=== PATIENT | female | born 1985 | race Caucasian/White ===

== ENCOUNTER 2017-10-03 13:25 | Inpatient (IN) | payer OTHER ==
[2017-10-03 14:07] VITALS: BMI 19.3
--- NOTE | 2017-10-03 14:28 | HP ---
Admission ROS [facility] Chief Complaint: i want to go to rehab Allergies/Adverse Reactions: Allergies Allergy/AdvReac Type Severity Reaction Status Date / Time No Known Allergies Allergy Verified 10/03/17 14:27 History of Present Illness: 32 years old female with long history of cocaine alcohol nicotine dependence has anxiety and depression on methadone program 160 mg is admitted to rehab Exam Limitations: No Limitations - Ebola screening Have you traveled outside of the country in the last 21 days: No (N) Have you had contact with anyone from an Ebola affected area: No Have you been sick,other than usual withdrawal symptoms: No Do you have a fever: No - Review of Systems Constitutional: Loss of Appetite, Unintentional Wgt. Loss, Unexplained wgt Loss EENT: reports: No Symptoms Reported Respiratory: reports: No Symptoms reported Cardiac: reports: No Symptoms Reported GI: reports: No Symptoms Reported : reports: No Symptoms Reported Musculoskeletal: reports: Back Pain, Joint Pain, Muscle Pain, Neck Pain Integumentary: reports: No Symptoms Reported Neuro: reports: No Symptoms reported Endocrine: reports: No Symptoms Reported Hematology: reports: No Symptoms Reported Psychiatric: reports: Judgement Intact, Orientated x3, Anxious, Depressed Other Systems: Reviewed and Negative Patient History - Patient Medical History Hx Anemia: No Hx Asthma: No Hx Chronic Obstructive Pulmonary Disease (COPD): No Hx Cancer: No Hx Cardiac Disorders: No Hx Congestive Heart Failure: No Hx Hypertension: No Hx Hypercholesterolemia: No Hx Pacemaker: No HX Cerebrovascular Accident: No Hx Seizures: No Hx Dementia: No Hx Diabetes: No Hx Gastrointestinal Disorders: No Hx Liver Disease: No Hx Genitourinary Disorders: No Hx Sexually Transmitted Disorders: No Hx Renal Disease (ESRD): No Hx Thyroid Disease: No Hx Human Immunodeficiency Virus (HIV): No Hx Hepatitis C: No Hx Depression: Yes Hx Suicide Attempt: No Hx Bipolar Disorder: No Hx Schizophrenia: No - Patient Surgical History Past Surgical History: No - PPD History Previous Implant?: Yes Documented Results: Negative w/o proof Implanted On Prior [facility] Admission?: No PPD to be Administered?: Yes - Reproductive History Patient is a Female of Child Bearing Age (11 -55 yrs old): Yes Last Menstrual Period: 09/08/17 Patient : No - Smoking Cessation Smoking history: Current every day smoker Have you smoked in the past 12 months: Yes Aproximately how many cigarettes per day: 10 Cigars Per Day: 0 Hx Chewing Tobacco Use: No Initiated information on smoking cessation: Yes 'Breaking Loose' booklet given: 10/03/17 - Substance & Tx. History Hx Alcohol Use: Yes Hx Substance Use: Yes Substance Use Type: Alcohol, Cocaine, Heroin Hx Substance Use Treatment: No - Substances Abused Oxycontin Route: Oral Frequency: Daily Amount used: 150 mg Age of first use: 28 Date of Last Use: 10/03/14 Heroin Route: Inhalation Frequency: Daily Amount used: 5 bags Age of first use: 28 Date of Last Use: 10/03/14 Cocaine Route: Smoking Frequency: 3-6 times per week Amount used: 60$ Age of first use: 29 Date of Last Use: 10/02/17 Alcohol Route: Oral Frequency: 3-6 times per week Amount used: [id number] Age of first use: 22 Date of Last Use: 09/29/17 Family Disease History - Family Disease History Family Disease History: Heart Disease: Grandparent, Father, [place]: Grandparent Admission Physical Exam [facility] - Vital Signs Vital Signs: Vital Signs - 24 hr 10/03/17 14:04 Temperature 96 F L Pulse Rate 75 Respiratory 20 Rate Blood Pressure 100/78 - Physical General Appearance: Yes: No Apparent Distress, Appropriately Dressed, Thin HEENTM: Yes: Hearing grossly Normal, Normal ENT Inspection, Normocephalic, Normal Voice Respiratory: Yes: Chest Non-Tender, Lungs Clear, Normal Breath Sounds, No Respiratory Distress, No Accessory Muscle Use Neck: Yes: Supple, Trachea in good position Breast: Yes: Breasts Symetrical Cardiology: Yes: Regular Rhythm, Regular Rate, S1, S2 Abdominal: Yes: Normal Bowel Sounds, Non Tender, Soft Genitourinary: Yes: Within Normal Limits Back: Yes: Normal Inspection Musculoskeletal: Yes: full range of Motion, Gait Steady Extremities: Yes: Normal Inspection, Normal Range of Motion, Non-Tender Neurological: Yes: Fully Oriented, Alert, Motor Strength 5/5, Normal Response, Depressed Affect Integumentary: Yes: Warm Lymphatic: Yes: Within Normal Limits - Diagnostic (1) Methadone maintenance therapy patient Current Visit: Yes Status: Chronic Comment: 160 mg po daily verificaiton pending (2) Cocaine dependence, uncomplicated Current Visit: Yes Status: Acute (3) Nicotine dependence Current Visit: Yes Status: Acute Qualifiers: Nicotine product type: cigarettes Substance use status: in withdrawal Qualified Code(s): F17.213 - Nicotine dependence, cigarettes, with withdrawal (4) Weight loss Current Visit: Yes Status: Acute (5) Anxiety and depression Current Visit: Yes Status: Suspected Cleared for Admission [facility] - Detox or Rehab [facility] Level of Care: Observation Bed Detox Regimen/Protocol: Not Applicable [facility] Breath Alcohol Content Breath Alcohol Content: 0 Urine Pregancy Test - Result Urine Test Results: Negative- NO Line Present Urine Drug Screen - Results Drug Screen Negative: No Urine Drug Screen Results: NELLY-Cocaine, MTD-Methadone Inpatient Rehab Admission - Initial Determination Are CD services needed?: Yes Free of communicable disease: Yes Not in need of hospitalization: Yes - Rehab Admission Criteria Previous failed treatment: Yes Poor recovery environment: Yes Comorbidities: Yes Lacks judgement: No Patient is meeting Inpatient Rehab admission criteria:: Yes
[2017-10-03] MEDS ORDERED: LOPERAMIDE HCL 2 MG CAPSULE PO PRN (14:39)
[2017-10-03] MEDS ORDERED: MAGNESIUM CITRATE 300 ML BOTTLE PO PRN (14:39)
[2017-10-03] MEDS ORDERED: MAG HYDROX/AL HYDROX/SIMETH 30 ML UNIT-DOSE CUP PO PRN (14:39)
[2017-10-03] MEDS ORDERED: P-EPHED 60MG/TRIPROLIDI 2.5MG TABLET PO PRN (14:39)
[2017-10-03] MEDS ORDERED: MENTHOL/PHENOL 1 EACH UD MM PRN (14:39)
[2017-10-03] MEDS ORDERED: IBUPROFEN 400 MG TABLET (FP) PO PRN (14:39)
[2017-10-03] MEDS ORDERED: NICOTINE POLACRILEX 2 MG GUM BUC PRN (14:39)
[2017-10-03] MEDS ORDERED: guaiFENesin/D-METHORPHAN HB 10 ML UNIT-DOSE CUPS PO PRN (14:39)
[2017-10-03] MEDS ORDERED: METHOCARBAMOL 500 MG TABLET PO PRN (15:53)
[2017-10-03 17:18] LABS: HEMATOCRIT 36.1 % (32.4-45.2); HEMOGLOBIN 12.2 GM/dL (10.7-15.3); MCH 29.6 pg (25.7-33.7); MCHC 33.9 g/dl (32.0-36.0); MEAN CELL VOLUME 87.1 fl (80-96); MEAN PLT VOLUME 7.4 fl (7.5-11.1); PLATELET COUNT 366 K/MM3 (134-434); RBC 4.14 M/mm3 (3.60-5.2); RDW 13.5 % (11.6-15.6); WHITE BLOOD COUNT 5.4 K/mm3 (4.0-10.0)
[2017-10-03 17:43] LABS: ALBUMIN 3.8 g/dl (3.4-5.0); ALK PHOS 59 U/L (45-117); ANION GAP 6 (8-16); BILIRUBIN,TOTAL 0.2 mg/dL (0.2-1.0); BLOOD UREA NITROGEN 12 mg/dL (7-18); CALCIUM 8.5 mg/dL (8.5-10.1); CHLORIDE 106 mmol/L (98-107); CO2 30 mmol/L (21-32); CREATININE 0.6 mg/dL (0.55-1.02); GLUCOSE,RANDOM 83 mg/dL (74-106); POTASSIUM 3.8 mmol/L (3.5-5.1); SGOT/AST 11 U/L (15-37); SGPT/ALT 14 U/L (12-78); SODIUM 142 mmol/L (136-145); TOT PROT 6.7 g/dl (6.4-8.2)
[2017-10-03] MEDS ORDERED: TUBERCULIN PPD 5 TU/0.1ML VIAL ID ONE ×2 (18:58→23:15)
[2017-10-03] MEDS: THIAMINE HCL 100 MG TABLET (FP) PO SCH (23:55)
--- NOTE | 2017-10-04 10:20 | HP ---
Psychiatrist Admission - Data Date of interview: 10/04/17 Admission source: [facility] Identifying data: This is the first admission to [facility] for this 32 years old single mother of 5 (3 kids with her parents and 2 children in Foster care) .Patient is homeless,supported by [place]. Medical History: Lost weight. Psychiatric History: denies psychiatric history but reports sleeping difficulties on and off.Patient states that Benadryl is not helping her cope with sleeping difficulties.She is willing to try Trazodone 50 mg po hs. Physical/Sexual Abuse/Trauma History: denies Vital Signs: Vital Signs - 24 hr 10/03/17 10/03/17 10/04/17 14:04 18:30 00:30 Temperature 96 F L 98.4 F Pulse Rate 75 80 Respiratory 20 18 18 Rate Blood Pressure 100/78 109/75 10/04/17 10/04/17 03:30 07:43 Temperature 97.5 F L Pulse Rate 97 H Respiratory 18 18 Rate Blood Pressure 103/70 Allergies/Adverse Reactions: Allergies Allergy/AdvReac Type Severity Reaction Status Date / Time No Known Allergies Allergy Verified 10/03/17 15:10 Date of last physical exam: 10/03/17 Concur with the findings of this exam: Yes - Substance Abuse/Tx History Hx Alcohol Use: Yes (reort drinking since 22 yo (vodka 2-3 pints daily)) Hx Substance Use: Yes (crack since 29yo,pain killers then heroin since 29 yo, Xanax 29 yo) Substance Use Type: Alcohol, Cocaine, Opiates, Tranquilizers Hx Substance Use Treatment: Yes (completed inpatient rehab 3 years old ,longest abstinence 1 year) Mental Status Exam - Mental Status Exam Alert and Oriented to: Time, Place, Person Cognitive Function: Grossly Intact Patient Appearance: Unkempt Mood: Sad, Anxious Affect: Labile Patient Behavior: Cooperative Speech Pattern: Clear Voice Loudness: Normal Thought Process: Goal Oriented Thought Disorder: Not Present Hallucinations: Denies Suicidal Ideation: Denies Homicidal Ideation: Denies Insight/Judgement: Fair Sleep: Difficulty falling asleep Appetite: Good Muscle strength/Tone: Normal Gait/Station: Normal Psychiatric Findings - Problem List ([place] 1, 2,3) (1) Cocaine dependence, uncomplicated Current Visit: Yes Status: Chronic (2) Nicotine dependence Current Visit: Yes Status: Chronic Qualifiers: Nicotine product type: cigarettes Substance use status: in withdrawal Qualified Code(s): F17.213 - Nicotine dependence, cigarettes, with withdrawal (3) Methadone maintenance therapy patient Current Visit: Yes Status: Chronic Comment: 160 mg po daily verificaiton pending (4) Opioid dependence Current Visit: Yes Status: Chronic (5) Substance-induced sleep disorder Current Visit: Yes Status: Chronic - Initial Treatment Plan Initial Treatment Plan: Trazodone 50 mg po hs.Will monitor progress.
[2017-10-04] MEDS: PRENATAL VITAMINS W/ FOLIC ACID TABLET (FP) PO SCH (10:37)
[2017-10-04] MEDS: NICOTINE 14 MG/24 HOURS TOPICAL PATCH TD SCH (10:37)
[2017-10-04] MEDS: METHADONE HCL 40 MG DISPERSABLE TABLET PO SCH (10:37)
--- NOTE | 2017-10-04 14:19 | EKG ---
Test Reason : Blood Pressure : / mmHG Vent. Rate : 080 BPM Atrial Rate : 080 BPM P-R Int : 118 ms QRS Dur : 088 ms QT Int : 318 ms P-R-T Axes : 080 051 064 degrees QTc Int : 366 ms NORMAL SINUS RHYTHM NONSPECIFIC T WAVE ABNORMALITY ABNORMAL ECG NO PREVIOUS ECGS AVAILABLE Confirmed by OMID JAIMES MD ([id number]) on 10/04/2017 2:19:03 PM Referred By: Confirmed By:OMID JAIMES MD
[2017-10-04 15:22] LABS: URINE APPEARANCE TURBID; URINE BILIRUBIN NEGATIVE (NEGATIVE); URINE BLOOD NEGATIVE (NEGATIVE); URINE COLOR AMBER; URINE GLUCOSE (UA) NEGATIVE (NEGATIVE); URINE KETONE NEGATIVE (NEGATIVE); URINE NITRITE POSITIVE (NEGATIVE); URINE UROBILINOGEN 4.0 E.U/dl mg/dL (0.2-1.0)
[2017-10-04 15:40] LABS: URINE LEUK ESTERASE 2+ (NEGATIVE); URINE PROTEIN 1+ (NEGATIVE)
[2017-10-04 15:53] LABS: CALCIUM OXALATE CRYSTALS FEW /hpf (NONE SEEN); EPI CELLS MANY /HPF (FEW); URINE BACTERIA MANY /hpf (NONE SEEN)
[2017-10-04] MEDS: THIAMINE HCL 100 MG TABLET (FP) PO SCH (21:40)
[2017-10-05] MEDS: METHADONE HCL 40 MG DISPERSABLE TABLET PO SCH (06:33)
[2017-10-05] MEDS: NICOTINE 14 MG/24 HOURS TOPICAL PATCH TD SCH (09:47)
[2017-10-05] MEDS: PRENATAL VITAMINS W/ FOLIC ACID TABLET (FP) PO SCH (09:49)
[2017-10-05] MEDS: THIAMINE HCL 100 MG TABLET (FP) PO SCH (21:32)
[2017-10-06] MEDS: METHADONE HCL 40 MG DISPERSABLE TABLET PO SCH (06:32)
[2017-10-06] MEDS: NICOTINE 14 MG/24 HOURS TOPICAL PATCH TD SCH (09:44)
[2017-10-06] MEDS: PRENATAL VITAMINS W/ FOLIC ACID TABLET (FP) PO SCH (09:44)
[2017-10-06] MEDS: THIAMINE HCL 100 MG TABLET (FP) PO SCH (21:27)
[2017-10-07] MEDS: METHADONE HCL 40 MG DISPERSABLE TABLET PO SCH (06:45)
[2017-10-07] MEDS: PRENATAL VITAMINS W/ FOLIC ACID TABLET (FP) PO SCH (10:27)
[2017-10-07] MEDS: NICOTINE 14 MG/24 HOURS TOPICAL PATCH TD SCH (10:27)
[2017-10-07] MEDS: THIAMINE HCL 100 MG TABLET (FP) PO SCH (21:40)
[2017-10-08] MEDS: diphenhydrAMINE HCL 50 MG CAPSULE PO PRN ×2 (00:30→21:23)
[2017-10-08] MEDS: METHADONE HCL 40 MG DISPERSABLE TABLET PO SCH (06:25)
[2017-10-08] MEDS: NICOTINE 14 MG/24 HOURS TOPICAL PATCH TD SCH (10:08)
[2017-10-08] MEDS: PRENATAL VITAMINS W/ FOLIC ACID TABLET (FP) PO SCH (10:08)
[2017-10-08] MEDS: THIAMINE HCL 100 MG TABLET (FP) PO SCH (21:23)
[2017-10-09] MEDS: METHADONE HCL 40 MG DISPERSABLE TABLET PO SCH (06:22)
[2017-10-09] MEDS: PRENATAL VITAMINS W/ FOLIC ACID TABLET (FP) PO SCH (10:25)
[2017-10-09] MEDS: NICOTINE 14 MG/24 HOURS TOPICAL PATCH TD SCH (10:25)
--- NOTE | 2017-10-09 11:14 | PN ---
Psychiatric Progress Note Vital Signs: Vital Signs Period Temp Pulse Resp BP Sys/Barber Pulse Ox Last 24 Hr 97.1 F 98 16-18 110/74 Date of Session: 10/09/17 Chief Complaint:: Gerardo very anxious and restless at time." HPI: Patient addressed Opioid dependence,Cociane dependence comorbid with Substance induced mood dsiorder. Current Medications: Active Medications Generic Name Dose Route Start Last Admin Trade Name Freq PRN Reason Stop Dose Admin Acetaminophen 650 mg 10/03/17 14:39 Tylenol - PO Q4H PRN FEVER Al Hydroxide/Mg Hydroxide 30 ml 10/03/17 14:39 Mylanta Oral Suspension - PO Q6H PRN DYSPEPSIA Diphenhydramine HCl 50 mg 10/07/17 17:56 10/08/17 21:23 Benadryl - PO 50 mg HS PRN Administration INSOMNIA Eucalyptus/Menthol/Phenol/Sorbitol 1 each 10/03/17 14:39 Cepastat Lozenge - MM Q4H PRN SORE THROAT Gabapentin 100 mg 10/09/17 14:00 Neurontin - PO TID RAMONA Guaifenesin 10 ml 10/03/17 14:39 Robitussin Dm - PO Q6H PRN COUGH Ibuprofen 400 mg 10/03/17 14:39 Motrin - PO Q6H PRN Pain level 4-6 Loperamide HCl 4 mg 10/03/17 14:39 Imodium - PO Q6H PRN DIARRHEA Magnesium Citrate 300 ml 10/03/17 14:39 Citroma - PO Q48H PRN CONSTIPATION Magnesium Hydroxide 30 ml 10/03/17 14:39 Milk Of Magnesia - PO DAILY PRN CONSTIPATION Methadone HCl 160 mg 10/04/17 09:45 10/09/17 06:22 Dolophine - PO 10/11/17 09:44 160 mg DAILY@0600 RAMONA Administration Methocarbamol 500 mg 10/03/17 15:53 Robaxin - PO QID PRN BACK PAIN Nicotine 14 mg 10/04/17 10:00 10/09/17 10:25 Nicoderm Patch - TD 14 mg DAILY RAMONA Administration Nicotine Polacrilex 2 mg 10/03/17 14:39 Nicorette Gum - BUC Q2H PRN NICOTINE REPLACEMENT RX Multivit/Folic Acid/Iron 1 tab 10/04/17 10:00 10/09/17 10:25 Vitamins ([facility]) - PO 1 tab DAILY RAMONA Administration Pseudoephedrine/Triprolidine 1 combo 10/03/17 14:39 Actifed - PO TID PRN NASAL CONGESTION Thiamine HCl 100 mg 10/03/17 22:00 10/08/17 21:23 Vitamin B1 - PO 100 mg HS RAMONA Administration Current Side Effect: No Lab tests ordered: No Lab tests reviewed: Yes Provider note:: Chart was revuewed,met with the patient to address her ongoing anxiety,restlesseness,sleeping difficulties.Properties of Neurontin has been discussed with the patient including side effects,benefits and dose adjustment.Patient is willing to start Neurontin 100 mg po tid. Supportive therapy provided focusing on relaxation techniques,behavior modification.Emotional support provided. Total face to face time:: 30 Mental Status Exam - Mental Status Exam Alert and Oriented to: Time, Place, Person Cognitive Function: Grossly Intact Patient Appearance: Well Groomed Mood: Nervous, Anxious, Irritable Affect: Mood Congruent, Labile Patient Behavior: Restless, Cooperative Speech Pattern: Clear Voice Loudness: Normal Thought Process: Goal Oriented Thought Disorder: Not Present Hallucinations: Denies Suicidal Ideation: Denies Homicidal Ideation: Denies Insight/Judgement: Fair Sleep: Difficulty falling asleep Appetite: Good Muscle strength/Tone: Normal Gait/Station: Normal Psychiatric Treatment Plan - Problem List (1) Cocaine dependence, uncomplicated Current Visit: Yes (2) Nicotine dependence Current Visit: Yes Qualifiers: Nicotine product type: cigarettes Substance use status: in withdrawal Qualified Code(s): F17.213 - Nicotine dependence, cigarettes, with withdrawal (3) Methadone maintenance therapy patient Current Visit: Yes Comment: 160 mg po daily verificaiton pending (4) Opioid dependence Current Visit: Yes (5) Substance-induced sleep disorder Current Visit: Yes
[2017-10-09] MEDS: GABAPENTIN 100 MG CAPSULE (FP) PO SCH ×2 (13:13→21:37)
--- NOTE | 2017-10-09 13:19 | PN ---
S Progress Note (SOAP) Subjective: "vaginal discomfort, vaginal itch and white discharge " Objective: 10/09/17 13:16 Vital Signs Temperature 97.1 F L 10/09/17 07:23 Pulse Rate 98 H 10/09/17 07:23 Respiratory Rate 18 10/09/17 07:23 Blood Pressure 110/74 10/09/17 07:23 O2 Sat by Pulse Oximetry (%) Laboratory Last Values WBC 5.4 K/mm3 (4.0-10.0) 10/03/17 15:40 RBC 4.14 M/mm3 (3.60-5.2) 10/03/17 15:40 Hgb 12.2 GM/dL (10.7-15.3) 10/03/17 15:40 Hct 36.1 % (32.4-45.2) 10/03/17 15:40 MCV 87.1 fl (80-96) 10/03/17 15:40 MCH 29.6 pg (25.7-33.7) 10/03/17 15:40 MCHC 33.9 g/dl (32.0-36.0) 10/03/17 15:40 RDW 13.5 % (11.6-15.6) 10/03/17 15:40 Plt Count 366 K/MM3 (134-434) 10/03/17 15:40 MPV 7.4 fl (7.5-11.1) L 10/03/17 15:40 Sodium 142 mmol/L (136-145) 10/03/17 15:40 Potassium 3.8 mmol/L (3.5-5.1) 10/03/17 15:40 Chloride 106 mmol/L (98-107) 10/03/17 15:40 Carbon Dioxide 30 mmol/L (21-32) 10/03/17 15:40 Anion Gap 6 (8-16) L 10/03/17 15:40 BUN 12 mg/dL (7-18) 10/03/17 15:40 Creatinine 0.6 mg/dL (0.55-1.02) 10/03/17 15:40 Creat Clearance w eGFR > 60 (>60) 10/03/17 15:40 Random Glucose 83 mg/dL (74-106) 10/03/17 15:40 Calcium 8.5 mg/dL (8.5-10.1) 10/03/17 15:40 Total Bilirubin 0.2 mg/dL (0.2-1.0) 10/03/17 15:40 AST 11 U/L (15-37) L 10/03/17 15:40 ALT 14 U/L (12-78) 10/03/17 15:40 Alkaline Phosphatase 59 U/L (45-117) 10/03/17 15:40 Total Protein 6.7 g/dl (6.4-8.2) 10/03/17 15:40 Albumin 3.8 g/dl (3.4-5.0) 10/03/17 15:40 Urine Color Jayne 10/03/17 10:00 Urine Appearance Turbid 10/03/17 10:00 Urine pH 5.0 (5.0-8.0) 10/03/17 10:00 Ur Specific [place] 1.026 (1.001-1.035) 10/03/17 10:00 Urine Protein 1+ (NEGATIVE) H 10/03/17 10:00 Urine Glucose (UA) Negative (NEGATIVE) 10/03/17 10:00 Urine Ketones Negative (NEGATIVE) 10/03/17 10:00 Urine Blood Negative (NEGATIVE) 10/03/17 10:00 Urine Nitrite Positive (NEGATIVE) 10/03/17 10:00 Urine Bilirubin Negative (NEGATIVE) 10/03/17 10:00 Urine Urobilinogen 4.0 e.u/dl mg/dL (0.2-1.0) H 10/03/17 10:00 Ur Leukocyte Esterase 2+ (NEGATIVE) H 10/03/17 10:00 Urine WBC (Auto) 22 /hpf (3-5) 10/03/17 10:00 Urine RBC (Auto) 10 /hpf (0-3) 10/03/17 10:00 Ur Epithelial Cells Many /HPF (FEW) 10/03/17 10:00 Calcium Oxalate Crystal Few /hpf (NONE SEEN) 10/03/17 10:00 Urine Bacteria Many /hpf (NONE SEEN) 10/03/17 10:00 RPR Titer Nonreactive (NONREACTIVE) 10/03/17 15:40 HIV 1&2 Antibody Screen Negative 10/04/17 05:50 HIV P24 Antigen Negative 10/04/17 05:50 Patient AOx3, self directing,well groom, no apparent distress. Lungs clear in all ferreira Normal hear rate , rythmn skin intact : deferred Assessment: 10/09/17 13:19 Patient lab reviewed: UTI with Hematuria Plan: Increase fluids empirically treat based last labs and symptoms start : Bactrim x 3 days One time fluconazole prophylaxis for vaginal yeast infection which patient is prone Urine culture Patient was educated on peritoneal hygiene to prevent further infections Continue to monitor
[2017-10-09] MEDS ORDERED: FLUCONAZOLE 50 MG TABLET PO ONE (13:45)
[2017-10-09] MEDS: SULFAMETHOXAZOLE/TRIMETHOPRIM 800MG/160MG D.S. TABLET PO SCH ×2 (14:55→21:38)
--- NOTE | 2017-10-09 15:40 | PN ---
Psychiatric Progress Note Vital Signs: Vital Signs Period Temp Pulse Resp BP Sys/Barber Pulse Ox Last 24 Hr 97.1 F 98 16-18 110/74 Date of Session: 10/09/17 Chief Complaint:: "I have bad anxiety." HPI: Pt admitted to [facility] for opiate and cocaine dependence. ROS: Unremarkable. Current Medications: Active Medications Generic Name Dose Route Start Last Admin Trade Name Freq PRN Reason Stop Dose Admin Acetaminophen 650 mg 10/03/17 14:39 Tylenol - PO Q4H PRN FEVER Al Hydroxide/Mg Hydroxide 30 ml 10/03/17 14:39 Mylanta Oral Suspension - PO Q6H PRN DYSPEPSIA Diphenhydramine HCl 50 mg 10/07/17 17:56 10/08/17 21:23 Benadryl - PO 50 mg HS PRN Administration INSOMNIA Eucalyptus/Menthol/Phenol/Sorbitol 1 each 10/03/17 14:39 Cepastat Lozenge - MM Q4H PRN SORE THROAT Gabapentin 100 mg 10/09/17 14:00 10/09/17 13:13 Neurontin - PO 100 mg TID RAMONA Administration Guaifenesin 10 ml 10/03/17 14:39 Robitussin Dm - PO Q6H PRN COUGH Ibuprofen 400 mg 10/03/17 14:39 Motrin - PO Q6H PRN Pain level 4-6 Loperamide HCl 4 mg 10/03/17 14:39 Imodium - PO Q6H PRN DIARRHEA Magnesium Citrate 300 ml 10/03/17 14:39 Citroma - PO Q48H PRN CONSTIPATION Magnesium Hydroxide 30 ml 10/03/17 14:39 Milk Of Magnesia - PO DAILY PRN CONSTIPATION Methadone HCl 160 mg 10/04/17 09:45 10/09/17 06:22 Dolophine - PO 10/11/17 09:44 160 mg DAILY@0600 RAMONA Administration Methocarbamol 500 mg 10/03/17 15:53 Robaxin - PO QID PRN BACK PAIN Nicotine 14 mg 10/04/17 10:00 10/09/17 10:25 Nicoderm Patch - TD 14 mg DAILY RAMONA Administration Nicotine Polacrilex 2 mg 10/03/17 14:39 Nicorette Gum - BUC Q2H PRN NICOTINE REPLACEMENT RX Multivit/Folic Acid/Iron 1 tab 10/04/17 10:00 10/09/17 10:25 Vitamins ([facility]jr) - PO 1 tab DAILY RAMONA Administration Pseudoephedrine/Triprolidine 1 combo 10/03/17 14:39 Actifed - PO TID PRN NASAL CONGESTION Thiamine HCl 100 mg 10/03/17 22:00 10/08/17 21:23 Vitamin B1 - PO 100 mg HS RAMONA Administration Trimethoprim/Sulfamethoxazole 1 each 10/09/17 13:45 10/09/17 14:55 Bactrim Ds - PO 10/12/17 22:00 1 each BID RAMONA Administration Medication(s) Change(s): Yes. Will add vistaril 50mg qhs for anxiety. Current Side Effect: No Lab tests ordered: No Lab tests reviewed: Yes Provider note:: [employer] Inspector met with patient concering the request for a psychiatric follow up. Pt. reports a h/o anxiety. States she misses her children and being away from home. Pt. states she medicates herself with opiods, benzodiazepines or cocaine when her anxiety increases. Patient made aware of the medication vistaril and it's effectiveness on reducing anxiety. Additional benefits and side effects discussed. Pt. agreeable to accepting vistaril 50mg PRN. Verbal consent given. Pt. also encouraged to utlized her coping skills of reading, drawing and writing when her anxiety increases. Pt. satisified and receptive to feedback. Verbal consent given. Will continue to monitor patient. Total face to face time:: 25 Mental Status Exam - Mental Status Exam Alert and Oriented to: Time, Place, Person Cognitive Function: Good Patient Appearance: Well Groomed Mood: Anxious Affect: Mood Congruent Patient Behavior: Crying (Pt. with a small episode of crying when discussing her anxiety. ), Cooperative Speech Pattern: Appropriate Voice Loudness: Normal Thought Process: Goal Oriented Thought Disorder: Not Present Hallucinations: Denies Suicidal Ideation: Denies Homicidal Ideation: Denies Insight/Judgement: Poor Sleep: Fair Appetite: Good Muscle strength/Tone: Normal Gait/Station: Normal Psychiatric Treatment Plan - Problem List (1) Substance-induced sleep disorder Current Visit: Yes (2) Cocaine dependence, uncomplicated Current Visit: Yes (3) Methadone maintenance therapy patient Current Visit: Yes Comment: 160 mg po daily verificaiton pending (4) Nicotine dependence Current Visit: Yes Qualifiers: Nicotine product type: cigarettes Substance use status: in withdrawal Qualified Code(s): F17.213 - Nicotine dependence, cigarettes, with withdrawal (5) Opioid dependence Current Visit: Yes (6) GERARD (generalized anxiety disorder) Current Visit: Yes Comment: Suspected. Vistaril 50mg q4h ordered
[2017-10-09] MEDS: THIAMINE HCL 100 MG TABLET (FP) PO SCH (21:36)
[2017-10-09] MEDS: hydrOXYzine PAMOATE 50 MG CAPSULE (FP) PO PRN (21:36)
[2017-10-09] MEDS ORDERED: SULFAMETHOXAZOLE/TRIMETHOPRIM 800MG/160MG D.S. TABLET PO SCH (22:00)
[2017-10-10] MEDS: hydrOXYzine PAMOATE 50 MG CAPSULE (FP) PO PRN (06:38)
[2017-10-10] MEDS: GABAPENTIN 100 MG CAPSULE (FP) PO SCH (06:38)
[2017-10-10] MEDS: METHADONE HCL 40 MG DISPERSABLE TABLET PO SCH (06:38)
[2017-10-10] MEDS: PRENATAL VITAMINS W/ FOLIC ACID TABLET (FP) PO SCH (10:19)
[2017-10-10] MEDS: NICOTINE 14 MG/24 HOURS TOPICAL PATCH TD SCH (10:20)
[2017-10-10] MEDS: SULFAMETHOXAZOLE/TRIMETHOPRIM 800MG/160MG D.S. TABLET PO SCH ×2 (10:21→21:35)
--- NOTE | 2017-10-10 13:13 | PN ---
Psychiatric Progress Note Vital Signs: Vital Signs Period Temp Pulse Resp BP Sys/Barber Pulse Ox Last 24 Hr 97.7 F 98 16-18 100/67 Date of Session: 10/10/17 Chief Complaint:: "I don't want to take benadryl" HPI: Patient addressed Opioid dependence,Cociane dependence comorbid with Substance induced mood dsiorder Current Medications: Active Medications Generic Name Dose Route Start Last Admin Trade Name Freq PRN Reason Stop Dose Admin Acetaminophen 650 mg 10/03/17 14:39 Tylenol - PO Q4H PRN FEVER Al Hydroxide/Mg Hydroxide 30 ml 10/03/17 14:39 Mylanta Oral Suspension - PO Q6H PRN DYSPEPSIA Eucalyptus/Menthol/Phenol/Sorbitol 1 each 10/03/17 14:39 Cepastat Lozenge - MM Q4H PRN SORE THROAT Guaifenesin 10 ml 10/03/17 14:39 Robitussin Dm - PO Q6H PRN COUGH Hydroxyzine Pamoate 50 mg 10/09/17 16:18 10/10/17 06:38 Vistaril - PO 50 mg Q4H PRN Administration ANXIETY Ibuprofen 400 mg 10/03/17 14:39 Motrin - PO Q6H PRN Pain level 4-6 Loperamide HCl 4 mg 10/03/17 14:39 Imodium - PO Q6H PRN DIARRHEA Magnesium Citrate 300 ml 10/03/17 14:39 Citroma - PO Q48H PRN CONSTIPATION Magnesium Hydroxide 30 ml 10/03/17 14:39 Milk Of Magnesia - PO DAILY PRN CONSTIPATION Methadone HCl 160 mg 10/04/17 09:45 10/10/17 06:38 Dolophine - PO 10/11/17 09:44 160 mg DAILY@0600 RAMONA Administration Methocarbamol 500 mg 10/03/17 15:53 Robaxin - PO QID PRN BACK PAIN Nicotine 14 mg 10/04/17 10:00 10/10/17 10:20 Nicoderm Patch - TD 14 mg DAILY RAMONA Administration Nicotine Polacrilex 2 mg 10/03/17 14:39 Nicorette Gum - BUC Q2H PRN NICOTINE REPLACEMENT RX Multivit/Folic Acid/Iron 1 tab 10/04/17 10:00 10/10/17 10:19 Vitamins (Sjr) - PO 1 tab DAILY RAMONA Administration Pseudoephedrine/Triprolidine 1 combo 10/03/17 14:39 Actifed - PO TID PRN NASAL CONGESTION Thiamine HCl 100 mg 10/03/17 22:00 10/09/17 21:36 Vitamin B1 - PO 100 mg HS RAMONA Administration Trimethoprim/Sulfamethoxazole 1 each 10/09/17 13:45 10/10/17 10:21 Bactrim Ds - PO 10/12/17 22:00 1 each BID RAMONA Administration Medication(s) Change(s): d/c Benadryl and Gabapentin. Current Side Effect: Yes (benadryl and gabapentin) Lab tests ordered: No Lab tests reviewed: Yes Provider note:: Was called to see the patient, who earlier complaints of insomnia,now patient states that she has a nightmares from benadryl and when she takes gabapentin she feels "different, I can't explain". Reviewed medications with the patient, discussed indications and properties each, patient was recommended to take vistarl as needed for insomnia, psychoeducation and supports provided. Total face to face time:: 30 Mental Status Exam - Mental Status Exam Alert and Oriented to: Time, Place, Person Cognitive Function: Good Patient Appearance: Well Groomed Mood: Anxious Affect: Appropriate, Mood Congruent Patient Behavior: Appropriate, Cooperative Speech Pattern: Clear, Appropriate Voice Loudness: Normal Thought Process: Goal Oriented Thought Disorder: Not Present Hallucinations: Denies Suicidal Ideation: Denies Homicidal Ideation: Denies Insight/Judgement: Fair Sleep: Poorly Appetite: Fair Muscle strength/Tone: Normal Gait/Station: Normal
[2017-10-10] MEDS ORDERED: METHADONE HCL 40 MG DISPERSABLE TABLET PO SCH (13:48)
--- NOTE | 2017-10-10 13:50 | PN ---
[facility] Progress Note (SOAP) Subjective: c/o about memory loss, requesting decrease methadone dose Objective: 10/10/17 13:49 Vital Signs - 24 hr 10/10/17 10/10/17 03:30 07:34 Temperature 97.7 F Pulse Rate 98 H Respiratory 16 18 Rate Blood Pressure 100/67 Laboratory Tests 10/03/17 10/03/17 10/03/17 10:00 15:40 15:40 WBC 5.4 RBC 4.14 Hgb 12.2 Hct 36.1 MCV 87.1 MCH 29.6 MCHC 33.9 RDW 13.5 Plt Count 366 MPV 7.4 L Sodium 142 Potassium 3.8 Chloride 106 Carbon Dioxide 30 Anion Gap 6 L BUN 12 Creatinine 0.6 Creat Clearance w eGFR > 60 Random Glucose 83 Calcium 8.5 Total Bilirubin 0.2 AST 11 L ALT 14 Alkaline Phosphatase 59 Total Protein 6.7 Albumin 3.8 Urine Color Jayne Urine Appearance Turbid Urine pH 5.0 Ur Specific [place] 1.026 Urine Protein 1+ H Urine Glucose (UA) Negative Urine Ketones Negative Urine Blood Negative Urine Nitrite Positive Urine Bilirubin Negative Urine Urobilinogen 4.0 e.u/dl H Ur Leukocyte Esterase 2+ H Urine WBC (Auto) 22 Urine RBC (Auto) 10 Ur Epithelial Cells Many Calcium Oxalate Crystal Few Urine Bacteria Many RPR Titer HIV 1&2 Antibody Screen HIV P24 Antigen 10/03/17 10/04/17 15:40 05:50 WBC RBC Hgb Hct MCV MCH MCHC RDW Plt Count MPV Sodium Potassium Chloride Carbon Dioxide Anion Gap BUN Creatinine Creat Clearance w eGFR Random Glucose Calcium Total Bilirubin AST ALT Alkaline Phosphatase Total Protein Albumin Urine Color Urine Appearance Urine pH Ur Specific [place] Urine Protein Urine Glucose (UA) Urine Ketones Urine Blood Urine Nitrite Urine Bilirubin Urine Urobilinogen Ur Leukocyte Esterase Urine WBC (Auto) Urine RBC (Auto) Ur Epithelial Cells Calcium Oxalate Crystal Urine Bacteria RPR Titer Nonreactive HIV 1&2 Antibody Screen Negative HIV P24 Antigen Negative Assessment: 10/10/17 13:49 oud - decrease methadone from 160mg to 15omg daily assess for torrey
[2017-10-10] MEDS: THIAMINE HCL 100 MG TABLET (FP) PO SCH (21:34)
[2017-10-11] MEDS: ACETAMINOPHEN 325 MG TABLET (FP) PO PRN (02:39)
[2017-10-11] MEDS: hydrOXYzine PAMOATE 50 MG CAPSULE (FP) PO PRN (02:40)
[2017-10-11] MEDS ORDERED: METHADONE HCL 40 MG DISPERSABLE TABLET ONE (05:57)
[2017-10-11] MEDS ORDERED: METHADONE HCL 10 MG TABLET ONE (05:57)
[2017-10-11] MEDS: METHADONE 120 MG, METHADONE 30 MG PO SCH (06:23)
[2017-10-11] MEDS: PRENATAL VITAMINS W/ FOLIC ACID TABLET (FP) PO SCH (09:30)
[2017-10-11] MEDS: SULFAMETHOXAZOLE/TRIMETHOPRIM 800MG/160MG D.S. TABLET PO SCH ×2 (09:30→22:02)
[2017-10-11] MEDS: NICOTINE 14 MG/24 HOURS TOPICAL PATCH TD SCH (09:31)
[2017-10-11] MEDS ORDERED: METHADONE HCL 40 MG DISPERSABLE TABLET PO SCH (13:48)
[2017-10-11] MEDS: THIAMINE HCL 100 MG TABLET (FP) PO SCH (22:02)
[2017-10-12] MEDS ORDERED: METHADONE HCL 10 MG TABLET ONE (05:44)
[2017-10-12] MEDS ORDERED: METHADONE HCL 40 MG DISPERSABLE TABLET ONE (05:45)
[2017-10-12] MEDS: METHADONE 120 MG, METHADONE 30 MG PO SCH (06:34)
[2017-10-12] MEDS: SULFAMETHOXAZOLE/TRIMETHOPRIM 800MG/160MG D.S. TABLET PO SCH ×2 (10:16→21:45)
[2017-10-12] MEDS: NICOTINE 14 MG/24 HOURS TOPICAL PATCH TD SCH (10:16)
[2017-10-12] MEDS: PRENATAL VITAMINS W/ FOLIC ACID TABLET (FP) PO SCH (10:16)
[2017-10-12] MEDS: THIAMINE HCL 100 MG TABLET (FP) PO SCH (21:44)
[2017-10-12] MEDS: hydrOXYzine PAMOATE 50 MG CAPSULE (FP) PO PRN (21:46)
[2017-10-13] MEDS ORDERED: METHADONE HCL 10 MG TABLET ONE (05:26)
[2017-10-13] MEDS ORDERED: METHADONE HCL 40 MG DISPERSABLE TABLET ONE (05:26)
[2017-10-13] MEDS: METHADONE 120 MG, METHADONE 30 MG PO SCH (06:32)
[2017-10-13] MEDS: NICOTINE 14 MG/24 HOURS TOPICAL PATCH TD SCH (10:15)
[2017-10-13] MEDS: PRENATAL VITAMINS W/ FOLIC ACID TABLET (FP) PO SCH (10:15)
[2017-10-13] MEDS: hydrOXYzine PAMOATE 50 MG CAPSULE (FP) PO PRN (21:40)
[2017-10-13] MEDS: THIAMINE HCL 100 MG TABLET (FP) PO SCH (21:40)
[2017-10-14] MEDS ORDERED: METHADONE HCL 10 MG TABLET ONE (05:54)
[2017-10-14] MEDS ORDERED: METHADONE HCL 40 MG DISPERSABLE TABLET ONE (05:55)
[2017-10-14] MEDS: METHADONE 120 MG, METHADONE 30 MG PO SCH (06:40)
[2017-10-14] MEDS: ACETAMINOPHEN 325 MG TABLET (FP) PO PRN (06:41)
[2017-10-14] MEDS: NICOTINE 14 MG/24 HOURS TOPICAL PATCH TD SCH (10:12)
[2017-10-14] MEDS: PRENATAL VITAMINS W/ FOLIC ACID TABLET (FP) PO SCH (10:12)
[2017-10-14] MEDS: hydrOXYzine PAMOATE 50 MG CAPSULE (FP) PO PRN (21:44)
[2017-10-14] MEDS: THIAMINE HCL 100 MG TABLET (FP) PO SCH (21:44)
[2017-10-14] MEDS: MAGNESIUM HYDROX 2400MG/30ML ORAL SUSPENSION 30 ML CUP PO PRN (21:45)
[2017-10-15] MEDS ORDERED: METHADONE HCL 40 MG DISPERSABLE TABLET ONE (03:13)
[2017-10-15] MEDS ORDERED: METHADONE HCL 10 MG TABLET ONE (03:13)
[2017-10-15] MEDS: METHADONE 120 MG, METHADONE 30 MG PO SCH (06:09)
[2017-10-15] MEDS: PRENATAL VITAMINS W/ FOLIC ACID TABLET (FP) PO SCH (10:08)
[2017-10-15] MEDS: NICOTINE 14 MG/24 HOURS TOPICAL PATCH TD SCH (10:08)
[2017-10-15] MEDS: MAGNESIUM HYDROX 2400MG/30ML ORAL SUSPENSION 30 ML CUP PO PRN (16:47)
[2017-10-15] MEDS: THIAMINE HCL 100 MG TABLET (FP) PO SCH (21:32)
[2017-10-15] MEDS: hydrOXYzine PAMOATE 50 MG CAPSULE (FP) PO PRN (21:33)
[2017-10-16] MEDS ORDERED: METHADONE HCL 40 MG DISPERSABLE TABLET ONE (04:36)
[2017-10-16] MEDS ORDERED: METHADONE HCL 10 MG TABLET ONE (04:36)
[2017-10-16] MEDS: METHADONE 120 MG, METHADONE 30 MG PO SCH (06:19)
[2017-10-16] MEDS: PRENATAL VITAMINS W/ FOLIC ACID TABLET (FP) PO SCH (10:18)
[2017-10-16] MEDS: NICOTINE 14 MG/24 HOURS TOPICAL PATCH TD SCH (10:18)
[2017-10-16] MEDS: THIAMINE HCL 100 MG TABLET (FP) PO SCH (21:18)
[2017-10-16] MEDS: hydrOXYzine PAMOATE 50 MG CAPSULE (FP) PO PRN (21:19)
[2017-10-16] MEDS ORDERED: DOCUSATE SODIUM 100 MG CAPSULE (FP) PO SCH (22:00)
[2017-10-17] MEDS ORDERED: METHADONE HCL 10 MG TABLET ONE (03:23)
[2017-10-17] MEDS ORDERED: METHADONE HCL 40 MG DISPERSABLE TABLET ONE (03:24)
[2017-10-17] MEDS: METHADONE 120 MG, METHADONE 30 MG PO SCH (06:51)
[2017-10-17 07:29] VITALS: BP 96/65; PULSE 92; TEMP 97.2
[2017-10-17] MEDS: PRENATAL VITAMINS W/ FOLIC ACID TABLET (FP) PO SCH (09:04)
[2017-10-17] MEDS: NICOTINE 14 MG/24 HOURS TOPICAL PATCH TD SCH (09:04)
--- NOTE | 2017-10-17 09:11 | PN ---
[facility] Progress Note Note: Patient completed this program today.Partially met her treatment goals ,will continue to address her issues on outpatient basis.stable for discharge today.
== END 2017-10-17 09:14 | disposition home or self-care (01) | DRG 772 ==
LOC: YASAS 13:25 → Y3E 15:39
PROVIDERS: ADMIT Psychiatry & Neurology Psychiatry; ATTEND Psychiatry & Neurology Psychiatry
PROC: HZ42ZZZ Group Counseling for Substance Abuse Treatment, Cognitive-Behavioral (ICD-10-PCS; principal; 2017-10-03)
DX: F11.20 Opioid dependence, uncomplicated (principal); F14.20 Cocaine dependence, uncomplicated; F17.210 Nicotine dependence, cigarettes, uncomplicated; F19.24 Other psychoactive substance dependence with psychoactive substance-induced mood disorder; F41.8 Other specified anxiety disorders; R63.4 Abnormal weight loss; Z68.1 Body mass index [BMI] 19.9 or less, adult; Z59.0 Homelessness
CPT/HCPCS: 36415; 80053; 81003; 81015; 85027; 86593; 87086; 87389; 93005; 93010